=== PATIENT | female | born 2000 | race African-American/Black ===

== ENCOUNTER 2023-02-20 11:10 | Emergency (ER) | payer SELFPAY ==
--- NOTE | ~2023-02-20 | US_ITS ---
EXAMINATION: US pelvic complete w TV DATE: 02/20/2023 14:26 INDICATION: Lower abdominal pain TECHNIQUE: Multiple transabdominal and endovaginal sonographic images of the pelvis were obtained. COMPARISON: None. FINDINGS: The uterus measures 6.5 x 3.6 x 4.5 cm. The endometrial complex measures 7 mm. The right ov malatih measures 4.9 x 1.9 x 1.9 cm. The left ovary measures 4.1 x 2.4 x 2.4 cm. There is normal vascular flow in the ovaries. There is no free fluid in the pelvis. IMPRESSION: 1. No sonographic correlate for the patient's symptoms. Reviewed, dictated and finalized at location A.
[2023-02-20 11:37] VITALS: BP 105/66; PULSE 75; RESP 16; TEMP 36.3; O2SAT 100
[2023-02-20 13:28] LABS: Appearance Urine Clear (Clear); Bacteria Urine None Seen /hpf; Bilirubin Urine Negative (Negative); Blood Urine Negative (Negative); Color Urine Yellow (Yellow); Glucose Urine UA Negative (Negative); Ketones Urine Trace mg/dL (Negative); Leukocyte Esterase Ur 2+ LEU/UL (Negative); Nitrate Urine Negative (Negative); Non Pathogenic Casts 0-2; Protein Urine Trace mg/dL (Negative); RBC Urine 0-2 /hpf (0-2); Specific Grav Ur 1.028 (1.001-1.035); Squamous Epithelial Cell Urine None seen /hpf (Few); WBC Urine 21-50 /hpf; pH Urine 7.5 (5.0-9.0)
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
[2023-02-20 13:44] LABS: Add Urine Microscopic? YES
[2023-02-20] MEDS: CEPHALEXIN 500 MG CAPSULE PO (15:36)
[2023-02-20] MEDS: metroNIDAZOLE 250 MG TABLET 500 MG PO (15:36)
== END 2023-02-20 16:00 | disposition home or self-care (01) ==
PROVIDERS: Emergency Provider Physician Assistant
DX: N76.0 Acute vaginitis (principal); N30.00 Acute cystitis without hematuria
CPT/HCPCS: 76830; 76856; 81001; 87070; 87077; 87086; 87088; 87147; 87491; 87591; 87661; 99284; A9270

== ENCOUNTER 2023-04-30 17:36 | Emergency (ER) | payer SELFPAY ==
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
[2023-04-30 17:48] VITALS: BP 100/67; PULSE 71; RESP 16; TEMP 36.8; O2SAT 100
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
== END 2023-04-30 19:15 | disposition home or self-care (01) ==
PROVIDERS: Emergency Provider Nurse Practitioner Family
DX: M26.622 Arthralgia of left temporomandibular joint (principal)
CPT/HCPCS: 70110; 99213; G0463